=== PATIENT | female | born 1995 | race Caucasian/White ===

== ENCOUNTER 2024-03-25 13:16 | Emergency (ER) | payer BC ==
[2024-03-25 13:56] VITALS: TEMP 97
[2024-03-25 14:04] VITALS: O2SAT 96
--- NOTE | 2024-03-25 14:04 | ERPHSYRPT ---
- History of Present Illness Time Seen by Provider: 03/25/24 13:50 Historian: patient Exam Limitations: no limitations Patient Subjective Stated Complaint: possible miscarriage Triage Nursing Assessment: 28 yr old female pt arrives to ED via POV. Pt presents with complaints of possible miscarriage. Pt reports that she is 5 weeks and started having severe cramping yesterday and then had "alot of blood" today around 0530. Pt reports that the bleeding has slowed down and is not just spotting. This is pt's 3 . pt is alert, oriented and not in distress. Physician History: Since yesterday pt has had lower abdominal cramps more on the left side and nausea. Today pt has had bright red blood per vagina in the toilet but has not filled one pad and since it is only when she wipes. Pt is (one month premature in 2011 - and full term V-back in 2014). Pt denies fever, chest pain, vomiting, diarrhea. Allergies/Adverse Reactions: sulfamethoxazole [From Bactrim] Allergy (Verified 03/25/24 13:48) Hives trimethoprim [From Bactrim] Allergy (Verified 03/25/24 13:48) Hives Home Medications: Buspirone HCl 5 mg [Buspar 5 mg] 15 mg PO DAILY 03/25/24 [History] Hx Tetanus, Diphtheria Vaccination/Date Given: No Hx Influenza Vaccination/Date Given: No Travel Risk - International Travel Have you traveled outside of the country in past 3 weeks: No - Emerging Infectious Disease Are you exhibiting symptoms associated with any current EIDs: No - Review of Systems Constitutional: No Fever Cardiac: No Chest Pain Abdominal/Gastrointestinal: Abdominal Pain, Nausea, No Vomiting, No Diarrhea Genitourinary Symptoms: Vaginal Bleeding Neurological: No Headache - Past Medical History Pertinent Past Medical History: No Neurological History: No Pertinent History ENT History: No Pertinent History Cardiac History: No Pertinent History Respiratory History: No Pertinent History Endocrine Medical History: No Pertinent History Musculoskeletal History: No Pertinent History GI Medical History: No Pertinent History History: No Pertinent History Psycho-Social History: No Pertinent History Female Reproductive Disorders: No Pertinent History - Past Surgical History Past Surgical History: Yes Neuro Surgical History: No Pertinent History Cardiac: No Pertinent History Respiratory: No Pertinent History Gastrointestinal: No Pertinent History Genitourinary: No Pertinent History Musculoskeletal: No Pertinent History Female Surgical History: Section - Female History Hx Now: Yes Gestational Age: 5 weeks - Social History Smoking Status: Current every day smoker Exposure to second hand smoke: No Drug Use: none - Nursing Vital Signs Nursing Vital Signs: Initial Vital Signs Pulse Rate 98 H 03/25/24 13:36 Blood Pressure 119/69 03/25/24 13:36 O2 Sat by Pulse Oximetry 96 03/25/24 13:36 Pain Scale Pain Intensity 5 - Physical Exam General Appearance: alert Eye Exam: PERRL/EOMI Ears, Nose, Throat Exam: pharynx normal Neck Exam: normal inspection Respiratory Exam: lungs clear, airway intact Cardiovascular Exam: normal heart sounds Gastrointestinal/Abdomen Exam: soft, normal bowel sounds, No tenderness Back Exam: normal inspection Extremity Exam: No pedal edema Neurologic Exam: alert, cooperative Skin Exam: warm, dry SpO2 Interpretation: normal SpO2: 96 O2 Delivery: Room Air - Course Nursing assessment & vital signs reviewed: Yes - Radiology Ultrasound Exam OB Ultrasound: discussed w/radiologist (Single intrauterine cystic mass, possible gestational sac. No pole/heart tones. Correlate with serial beta hCG and follow-up sonogram regarding viability.) Ordered Tests: Active Orders 24 hr Category Date Time Status OB <14 WKS 1ST GESTATION [US] Stat Exams 03/25/24 15:39 Completed AMYLASE Stat Lab 03/25/24 14:45 Completed CBC W DIFF Stat Lab 03/25/24 14:45 Completed CMP Stat Lab 03/25/24 14:45 Completed CULTURE,URINE Stat Lab 03/25/24 14:22 Received HCG, Quantitative (Inhouse) Stat Lab 03/25/24 14:45 Completed LIPASE Stat Lab 03/25/24 14:45 Completed PROTIME WITH INR Stat Lab 03/25/24 14:45 Completed PTT Stat Lab 03/25/24 14:45 Completed UA W/RFX UR CULTURE Stat Lab 03/25/24 14:22 Completed Lab/Rad Data: Laboratory Result Diagrams 03/25/24 14:45 03/25/24 14:45 Laboratory Results 03/25/24 03/25/24 03/25/24 Range/Units 14:45 14:45 14:45 WBC (4.0-10.5) x10^3/uL RBC (4.1-5.4) x10^6/uL Hgb (12.0-16.0) g/dL Hct (35-47) % MCV (78-100) fL MCH (26-32) pg MCHC (32-36) g/dL RDW (11.5-14.0) % Plt Count (150-450) x10^3/uL MPV (7.5-11.0) fL Gran % (36.0-66.0) % Immature Gran % (Auto) (0.00-0.4) % Nucleat RBC Rel Count (0.00-0.1) % Eos # (Auto) (0-0.5) x10^3/uL Immature Gran # (Auto) (0.00-0.03) x10^3u/L Absolute Lymphs (auto) (1.0-4.6) x10^3/uL Absolute Monos (auto) (0.0-1.3) x10^3/uL Absolute Nucleated RBC (0.00-0.01) x10^3u/L Lymphocytes % (24.0-44.0) % Monocytes % (0.0-12.0) % Eosinophils % (0.00-5.0) % Basophils % (0.0-0.4) % Absolute Granulocytes (1.4-6.9) x10^3/uL Basophils # (0-0.4) x10^3/uL PT 10.9 (9.4-12.5) SECONDS INR 1.00 (0.8-3.0) APTT 27.3 (25.1-36.5) SECONDS Sodium (135-145) mmol/L Potassium (3.5-5.1) mmol/L Chloride (98-107) mmol/L Carbon Dioxide (22-30) mmol/L Anion Gap (5-15) MEQ/L BUN (7-17) mg/dL Creatinine (0.52-1.04) mg/dL Estimated GFR ML/MIN Glucose (74-106) mg/dL Calcium (8.4-10.2) mg/dL Total Bilirubin (0.2-1.3) mg/dL AST (14-36) U/L ALT (0-35) U/L Alkaline Phosphatase (38-126) U/L Serum Total Protein (6.3-8.2) g/dL Albumin (3.5-5.0) g/dL Amylase (30-110) U/L Lipase (23-300) U/L Beta HCG, Quant 839.96 mIU/ml Urine Color (Yellow) Urine Appearance (Clear) Urine pH (4.6-8.0) Ur Specific [place] (1.005-1.030) Urine Protein (Negative) Urine Glucose (UA) (Negative) mg/dL Urine Ketones (Negative) Urine Blood (Negative) Urine Nitrite (Negative) Urine Bilirubin (Negative) Urine Urobilinogen (0.2) mg/dL Ur Leukocyte Esterase (Negative) U Hyaline Cast (Auto) (0-2) /LPF Urine Microscopic RBC (0-5) /HPF Urine Microscopic WBC (0-5) /HPF Ur Epithelial Cells (None Seen) /HPF Urine Bacteria (None Seen) /HPF Urine Culture Reflexed (NO) ABO Group 0 Rh Factor POSITIVE Antibody Screen NEGATIVE (NEGATIVE) 03/25/24 03/25/24 03/25/24 Range/Units 14:45 14:45 14:22 WBC 9.1 (4.0-10.5) x10^3/uL RBC 4.54 (4.1-5.4) x10^6/uL Hgb 13.7 (12.0-16.0) g/dL Hct 40.2 (35-47) % MCV 88.5 (78-100) fL MCH 30.2 (26-32) pg MCHC 34.1 (32-36) g/dL RDW 12.0 (11.5-14.0) % Plt Count 267 (150-450) x10^3/uL MPV 10.5 (7.5-11.0) fL Gran % 63.6 (36.0-66.0) % Immature Gran % (Auto) 0.3 (0.00-0.4) % Nucleat RBC Rel Count 0.0 (0.00-0.1) % Eos # (Auto) 0.18 (0-0.5) x10^3/uL Immature Gran # (Auto) 0.03 (0.00-0.03) x10^3u/L Absolute Lymphs (auto) 2.20 (1.0-4.6) x10^3/uL Absolute Monos (auto) 0.85 (0.0-1.3) x10^3/uL Absolute Nucleated RBC 0.00 (0.00-0.01) x10^3u/L Lymphocytes % 24.3 (24.0-44.0) % Monocytes % 9.4 (0.0-12.0) % Eosinophils % 2.0 (0.00-5.0) % Basophils % 0.4 (0.0-0.4) % Absolute Granulocytes 5.75 (1.4-6.9) x10^3/uL Basophils # 0.04 (0-0.4) x10^3/uL PT (9.4-12.5) SECONDS INR (0.8-3.0) APTT (25.1-36.5) SECONDS Sodium 138 (135-145) mmol/L Potassium 4.1 (3.5-5.1) mmol/L Chloride 104 (98-107) mmol/L Carbon Dioxide 25 (22-30) mmol/L Anion Gap 12.6 (5-15) MEQ/L BUN 10 (7-17) mg/dL Creatinine 0.69 (0.52-1.04) mg/dL Estimated GFR 121.2 ML/MIN Glucose 90 (74-106) mg/dL Calcium 9.4 (8.4-10.2) mg/dL Total Bilirubin 0.40 (0.2-1.3) mg/dL AST 37 H (14-36) U/L ALT 52 H (0-35) U/L Alkaline Phosphatase 48 (38-126) U/L Serum Total Protein 7.7 (6.3-8.2) g/dL Albumin 4.7 (3.5-5.0) g/dL Amylase 103 (30-110) U/L Lipase 145 (23-300) U/L Beta HCG, Quant mIU/ml Urine Color Yellow (Yellow) Urine Appearance Cloudy A (Clear) Urine pH 7.0 (4.6-8.0) Ur Specific [place] 1.020 (1.005-1.030) Urine Protein Trace A (Negative) Urine Glucose (UA) Negative (Negative) mg/dL Urine Ketones Negative (Negative) Urine Blood Large A (Negative) Urine Nitrite Negative (Negative) Urine Bilirubin Negative (Negative) Urine Urobilinogen 1.0 A (0.2) mg/dL Ur Leukocyte Esterase Trace A (Negative) U Hyaline Cast (Auto) NONE SEEN (0-2) /LPF Urine Microscopic RBC 0-2 (0-5) /HPF Urine Microscopic WBC 6-10 A (0-5) /HPF Ur Epithelial Cells Many A (None Seen) /HPF Urine Bacteria Moderate A (None Seen) /HPF Urine Culture Reflexed YES (NO) ABO Group Rh Factor Antibody Screen (NEGATIVE) - Progress Progress: improved Discussed with DrJosee: Other (Spoke with & discussed pt with Dr. Dahl([employer])(~ 1810) who will come in to see pt in ER.) Will see patient in: office (Dr. Dahl states she will see pt in her office in 2 days.) Counseled pt/family regarding: lab results, diagnosis, need for follow-up Medical Desision Making - Diagnostic Testing Diagnostic test were ordered, analyzed, and reviewed by me: Yes Radiological Interpretation: Discussed w/ radiologist - Departure Departure Disposition: Home Clinical Impression: Threatened , Abdominal pain Condition: Stable Critical Care Time: No Referrals: DOCTOR,NO FAMILY [Primary Care Provider] - Follow up/PCP as directed Instructions: Threatened Miscarriage (DC), Bleeding in Early (DC) Additional Instructions: Follow up with Dr. Dahl([employer]) in her office; call for an appointment tomorrow. Strict bed rest until Dr. Dahl is seen.
[2024-03-25 14:23] VITALS: PULSE 79; RESP 17
[2024-03-25 14:58] LABS: Absolute Neutrophil Ct (ANC) 5.75 x10^3/uL (1.4-6.9); BASOPHIL % 0.4 % (0.0-0.4); Basophil (Absolute #) 0.04 x10^3/uL (0-0.4); Eosinophil (Absolute #) 0.18 x10^3/uL (0-0.5); Hematocrit 40.2 % (35-47); Hemoglobin 13.7 g/dL (12.0-16.0); IMMATURE GRAN # 0.03 x10^3u/L (0.00-0.03); IMMATURE GRAN % 0.3 % (0.00-0.4); Lymphocytes % 24.3 % (24.0-44.0); Mean Cell Volume 88.5 fL (78-100); Mean Corpuscular Hemoglobin 30.2 pg (26-32); Mean Corpuscular Hgb Concent. 34.1 g/dL (32-36); Mean Platelet Volume 10.5 fL (7.5-11.0); Monocyte (Absolute #) 0.85 x10^3/uL (0.0-1.3); Monocytes % 9.4 % (0.0-12.0); Neutrophil % 63.6 % (36.0-66.0); Platelet Count 267 x10^3/uL (150-450); Red Blood Count 4.54 x10^6/uL (4.1-5.4); White Blood Count 9.1 x10^3/uL (4.0-10.5)
[2024-03-25 15:00] LABS: Appearance Cloudy (Clear); Bacteria Moderate /HPF (None Seen); Bilirubin Negative (Negative); Blood Large (Negative); Epithelial Cells Many /HPF (None Seen); Glucose, Urine Negative (Negative); Hyaline Casts NONE SEEN /LPF (0-2); Ketones Negative (Negative); Leukocyte Esterase Trace (Negative); Nitrite Negative (Negative); Protein,Urine Dip Trace (Negative); RBC 0-2 /HPF (0-5)
[2024-03-25 15:11] LABS: ALBUMIN 4.7 g/dL (3.5-5.0); ANION GAP 12.6 MEQ/L (5-15); BILIRUBIN,TOTAL 0.4 mg/dL (0.2-1.3); Calcium 9.4 mg/dL (8.4-10.2); Creatinine 1 0.69 mg/dL (0.52-1.04); EST GLOMERULAR FILTRATION RATE 121.2 ML/MIN; Potassium 4.1 mmol/L (3.5-5.1); Total Protein 7.7 g/dL (6.3-8.2)
[2024-03-25 15:12] LABS: PROTIME 10.9 SECONDS (9.4-12.5); PTT 27.3 SECONDS (25.1-36.5)
[2024-03-25 15:29] LABS: ADD URINE CULTURE? YES (NO)
[2024-03-25 15:40] LABS: ABO TYPING 0; Antibody Screen NEGATIVE (NEGATIVE); RH TYPING POSITIVE
--- NOTE | 2024-03-25 17:02 | XRAY ---
Indication: Vaginal bleeding. Pain. Two-dimensional transvaginal early OB ultrasound performed. Comparison: None Uterus anteverted measuring 10.5 x 4.4 x 4.7 cm. No focal solid/cystic uterine mass. Endometrial cavity demonstrates single cystic mass, possible gestational sac. No pole/heart tones. Right ovary measures 2.0 x 2.0 x 2.1 cm and sonographically unremarkable. Nonvisualization left ovary. No suspicious adnexal mass or free fluid. Impression: Single intrauterine cystic mass, possible gestational sac. No pole/heart tones. Correlate with serial beta hCG and follow-up sonogram regarding viability.
[2024-03-25 18:09] VITALS: BP 107/69
--- NOTE | 2024-03-25 18:57 | PCM.CONS ---
History of Present Illness - Reason for Consult Chief Complaint: vaginal bleeding in early Date of Consultation Date: 03/25/24 Reason for Consult: rule out miscarriage Requesting Provider: Emergency department Consulting Provider: KORTNEY DAHL MD History of Present Illness: is a 28 year old female P2 LMP February presents with approximately 8 hours of vaginal bleeding with cramps. Patient had US performed at [facility] confirming an IUP but did not have HC G done. Pt denies passing clots, nausea, vomiting, dizziness or chest pain. This is a desired preganacy. - Review of Systems Constitutional: No Symptoms Ears, Nose, & Throat: No Symptoms Respiratory: No Symptoms Cardiac: No Symptoms Abdominal/Gastrointestinal: Abdominal Pain (Pt. c/o abdominal cramping) Genitourinary Symptoms: No Symptoms Musculoskeletal: No Symptoms Skin: No Symptoms Medications & Allergies Home Medications: Home Medication List Buspirone HCl 5 mg [Buspar 5 mg] 15 mg PO DAILY 03/25/24 [History Confirmed 03/25/24] Allergies/Adverse Reactions: Allergies Allergy/AdvReac Type Severity Reaction Status Date / Time sulfamethoxazole Allergy Hives Verified 03/25/24 13:48 [From Bactrim] trimethoprim [From Bactrim] Allergy Hives Verified 03/25/24 13:48 - Past Medical History Neurological History: No Pertinent History ENT History: No Pertinent History Cardiac History: No Pertinent History Respiratory History: No Pertinent History Endocrine Medical History: No Pertinent History Musculoskelatal History: No Pertinent History GI Medical History: No Pertinent History History: No Pertinent History Pyscho-Social History: No Pertinent History Reproductive Disorders: No Pertinent History - Female History Are you now?: Yes Gestational Age: 5 weeks - Past Surgical History Past Surgical History: No Neuro Surgical History: No Pertinent History Cardiac History: No Pertinent History Respiratory Surgery: No Pertinent History GI Surgical History: No Pertinent History Genitourinary Surgical Hx: No Pertinent History Musculskeletal Surgical Hx: No Pertinent History Female Surgical History: No Pertinent History, Section - Social History Smoking Status: Current every day smoker Exposure to second hand smoke: No Alcohol: Occasionally Drug Use: none - Social Determinants of Health Will the patient participate in the screening: Yes Do you worry about a steady place to live?: No Do you have any problems with any of the following?: No known problems In the past 12 months,have you had to go without utilities?: No Have you or anyone in your house had to go without enough: No Transportation Issues: No Has anyone in your support network made you feel unsafe?: No - Physical Exam Vital Signs: Vital Signs - 24 hr Temp Pulse Resp BP BP Pulse Ox 03/25/24 18:17 96 03/25/24 18:00 107/69 03/25/24 17:30 111/60 96 03/25/24 17:20 96 03/25/24 17:10 95 03/25/24 17:00 96 03/25/24 16:50 96 03/25/24 16:40 95 03/25/24 16:32 97 03/25/24 16:00 116/75 97 03/25/24 15:50 96 03/25/24 15:40 96 03/25/24 15:32 97 03/25/24 15:00 113/41 96 03/25/24 14:50 97 03/25/24 14:40 95 03/25/24 14:32 95 03/25/24 14:00 79 17 104/64 96 03/25/24 13:46 97 F 92 H 16 119/69 98 03/25/24 13:36 98 H 119/69 96 General Appearance: no apparent distress Neurologic Exam: alert, normal mood/affect Pelvic Exam: normal external exam, vaginal bleeding, uterine tenderness, other (Patient with acutely retroverted uterus. Some fundal tenderness present, but cervical os closed) Rectal Exam: not done Results - Labs Lab/Micro Results: Lab Results-Last 24 Hours 03/25/24 03/25/24 03/25/24 Range/Units 14:22 14:45 14:45 WBC 9.1 (4.0-10.5) x10^3/uL RBC 4.54 (4.1-5.4) x10^6/uL Hgb 13.7 (12.0-16.0) g/dL Hct 40.2 (35-47) % MCV 88.5 (78-100) fL MCH 30.2 (26-32) pg MCHC 34.1 (32-36) g/dL RDW 12.0 (11.5-14.0) % Plt Count 267 (150-450) x10^3/uL MPV 10.5 (7.5-11.0) fL Gran % 63.6 (36.0-66.0) % Immature Gran % (Auto) 0.3 (0.00-0.4) % Nucleat RBC Rel Count 0.0 (0.00-0.1) % Eos # (Auto) 0.18 (0-0.5) x10^3/uL Immature Gran # (Auto) 0.03 (0.00-0.03) x10^3u/L Absolute Lymphs (auto) 2.20 (1.0-4.6) x10^3/uL Absolute Monos (auto) 0.85 (0.0-1.3) x10^3/uL Absolute Nucleated RBC 0.00 (0.00-0.01) x10^3u/L Lymphocytes % 24.3 (24.0-44.0) % Monocytes % 9.4 (0.0-12.0) % Eosinophils % 2.0 (0.00-5.0) % Basophils % 0.4 (0.0-0.4) % Absolute Granulocytes 5.75 (1.4-6.9) x10^3/uL Basophils # 0.04 (0-0.4) x10^3/uL PT (9.4-12.5) SECONDS INR (0.8-3.0) APTT (25.1-36.5) SECONDS Sodium 138 (135-145) mmol/L Potassium 4.1 (3.5-5.1) mmol/L Chloride 104 (98-107) mmol/L Carbon Dioxide 25 (22-30) mmol/L Anion Gap 12.6 (5-15) MEQ/L BUN 10 (7-17) mg/dL Creatinine 0.69 (0.52-1.04) mg/dL Estimated GFR 121.2 ML/MIN Glucose 90 (74-106) mg/dL Calcium 9.4 (8.4-10.2) mg/dL Total Bilirubin 0.40 (0.2-1.3) mg/dL AST 37 H (14-36) U/L ALT 52 H (0-35) U/L Alkaline Phosphatase 48 (38-126) U/L Serum Total Protein 7.7 (6.3-8.2) g/dL Albumin 4.7 (3.5-5.0) g/dL Amylase 103 (30-110) U/L Lipase 145 (23-300) U/L Beta HCG, Quant mIU/ml Urine Color Yellow (Yellow) Urine Appearance Cloudy A (Clear) Urine pH 7.0 (4.6-8.0) Ur Specific [place] 1.020 (1.005-1.030) Urine Protein Trace A (Negative) Urine Glucose (UA) Negative (Negative) mg/dL Urine Ketones Negative (Negative) Urine Blood Large A (Negative) Urine Nitrite Negative (Negative) Urine Bilirubin Negative (Negative) Urine Urobilinogen 1.0 A (0.2) mg/dL Ur Leukocyte Esterase Trace A (Negative) U Hyaline Cast (Auto) NONE SEEN (0-2) /LPF Urine Microscopic RBC 0-2 (0-5) /HPF Urine Microscopic WBC 6-10 A (0-5) /HPF Ur Epithelial Cells Many A (None Seen) /HPF Urine Bacteria Moderate A (None Seen) /HPF Urine Culture Reflexed YES (NO) ABO Group Rh Factor Antibody Screen (NEGATIVE) 03/25/24 03/25/24 03/25/24 Range/Units 14:45 14:45 14:45 WBC (4.0-10.5) x10^3/uL RBC (4.1-5.4) x10^6/uL Hgb (12.0-16.0) g/dL Hct (35-47) % MCV (78-100) fL MCH (26-32) pg MCHC (32-36) g/dL RDW (11.5-14.0) % Plt Count (150-450) x10^3/uL MPV (7.5-11.0) fL Gran % (36.0-66.0) % Immature Gran % (Auto) (0.00-0.4) % Nucleat RBC Rel Count (0.00-0.1) % Eos # (Auto) (0-0.5) x10^3/uL Immature Gran # (Auto) (0.00-0.03) x10^3u/L Absolute Lymphs (auto) (1.0-4.6) x10^3/uL Absolute Monos (auto) (0.0-1.3) x10^3/uL Absolute Nucleated RBC (0.00-0.01) x10^3u/L Lymphocytes % (24.0-44.0) % Monocytes % (0.0-12.0) % Eosinophils % (0.00-5.0) % Basophils % (0.0-0.4) % Absolute Granulocytes (1.4-6.9) x10^3/uL Basophils # (0-0.4) x10^3/uL PT 10.9 (9.4-12.5) SECONDS INR 1.00 (0.8-3.0) APTT 27.3 (25.1-36.5) SECONDS Sodium (135-145) mmol/L Potassium (3.5-5.1) mmol/L Chloride (98-107) mmol/L Carbon Dioxide (22-30) mmol/L Anion Gap (5-15) MEQ/L BUN (7-17) mg/dL Creatinine (0.52-1.04) mg/dL Estimated GFR ML/MIN Glucose (74-106) mg/dL Calcium (8.4-10.2) mg/dL Total Bilirubin (0.2-1.3) mg/dL AST (14-36) U/L ALT (0-35) U/L Alkaline Phosphatase (38-126) U/L Serum Total Protein (6.3-8.2) g/dL Albumin (3.5-5.0) g/dL Amylase (30-110) U/L Lipase (23-300) U/L Beta HCG, Quant 839.96 mIU/ml Urine Color (Yellow) Urine Appearance (Clear) Urine pH (4.6-8.0) Ur Specific [place] (1.005-1.030) Urine Protein (Negative) Urine Glucose (UA) (Negative) mg/dL Urine Ketones (Negative) Urine Blood (Negative) Urine Nitrite (Negative) Urine Bilirubin (Negative) Urine Urobilinogen (0.2) mg/dL Ur Leukocyte Esterase (Negative) U Hyaline Cast (Auto) (0-2) /LPF Urine Microscopic RBC (0-5) /HPF Urine Microscopic WBC (0-5) /HPF Ur Epithelial Cells (None Seen) /HPF Urine Bacteria (None Seen) /HPF Urine Culture Reflexed (NO) ABO Group 0 Rh Factor POSITIVE Antibody Screen NEGATIVE (NEGATIVE) - Radiology Impressions Radiology Exams & Impressions: Radiology Procedures Category Date Time Status OB <14 WKS 1ST GESTATION [US] Stat Exams 03/25/24 15:39 Completed Assessment/Plan (1) Vaginal bleeding affecting early Current Visit: Yes Status: Acute Onset Date: ~03/25/24 Assessment & Plan: 28 y/o female with vaginal bleeding in early . U/S confirms IUP no evidence of ectopic . I counseled the patient that 1 in 10 pregnancies will miscarry and there is no medication or treatment that can change the outcome of this . Recommend outpatient follow up in 48 hours for repeat HCG and further assessment Stable for D/C Patient instructed to come back to ED if increased bleeding with clots or tissue that doesnt resolve after 2 hours- or severe abdominal pain Will follow up as outpatient Kortney Dahl MD I spent 40 minutes in total in caring for this patient including face to face counseling, examination, records review and documentation Code(s): O20.9 - HEMORRHAGE IN EARLY , UNSPECIFIED
== END 2024-03-25 19:32 | disposition home or self-care (01) ==
LOC: ED 13:16
DX: O20.0 Threatened abortion (principal); Z3A.01 Less than 8 weeks gestation of pregnancy; O20.9 Hemorrhage in early pregnancy, unspecified; R10.30 Lower abdominal pain, unspecified; R11.0 Nausea; Z79.899 Other long term (current) drug therapy; Z72.0 Tobacco use
CPT/HCPCS: 36415; 76801; 80053; 81001; 82150; 83690; 84702; 85025; 85610; 85730; 86850; 86900; 86901; 87086; 99283